=== PATIENT | male | born 1940 | race Caucasian/White ===

== ENCOUNTER 2018-12-07 15:37 | Emergency (ER) | payer MEDICARE, SELFPAY ==
[2018-12-07] VITALS (22 sets, daily range): BP systolic 103–148; BP diastolic 58–75; PULSE 63–74; RESP 13–23; TEMP 36.8–39; O2SAT 91–96
--- NOTE | 2018-12-07 15:53 | DI.RAD_ITS ---
SYMPTOM/DIAGNOSIS: FEVER, CHEST PAIN, R/O PNEUMONIA CHEST X-RAY: Frontal and lateral views. Heart size and pulmonary vasculature are within normal limits. There are post surgical changes of an aortic valve replacement. The lungs are clear. No effusions or pneumothoraces are identified. No acute osseous abnormalities are identified. IMPRESSION: No acute pulmonary process.
[2018-12-07] MEDS: Normal Saline Flush 10 ML SYR IVP (15:55)
[2018-12-07 16:04] LABS: Abs Immature Grans 0.02 k/cumm (0.0-0.09); Absolute Basophil Count 0.01 k/cumm (0.0-0.2); Absolute Lymphocyte Count 0.45 k/cumm (1.2-3.4); Absolute Monocyte Count 0.28 k/cumm (0.11-0.7); Absolute Neutrophil Count 3.36 k/cumm (1.2-6.7); Basophils % 0.2; HGB 13.9 g/dL (13.5-17.5); Immature Grans % 0.5; Lymphocytes % 10.9; Mean Corp. HGB Concentration 33.1 g/dL (32.0-36.0); Mean Corpuscular Hemoglobin 27.9 pg (27.0-33.0); Mean Corpuscular Volume 84.2 fL (80-95); Mean Platelet Volume 9.9 fL (8.0-11.0); Monocytes % 6.8; Neutrophils % 81.6; Platelet Count 145 x1000/uL (130-400); RBC 4.99 m/cumm (4.50-6.00); RBC Distribution Width 15.2 % (11.8-14.1); White Blood Cell Count 4.12 k/cumm (4.4-10.8)
[2018-12-07] MEDS: Acetaminophen 500 MG TAB 1000 MG PO (16:08)
[2018-12-07 16:11] LABS: Lactate-non-spesis 1.2 mmol/l (0.6-1.4)
--- NOTE | 2018-12-07 16:20 | ED.GENADUL_ITS ---
Discharge Plan Disposition Patient Disposition: AGAINST MEDICAL ADVICE Condition: Stable Discharge Details Chief Complaint: Chest Pain Clinical Impression: Chest pain, Fever, History of aortic valve replacement Primary Care Provider: Bernice,Local ED Provider: Alejandra Topete Home Meds and New Rx's Prescriptions: Continued metoprolol succinate 50 mg Tablet Extended Release 24 Hr 50 mg PO BID RF: 0 aspirin [Aspirin Low Dose] 81 mg Tablet,Delayed Release (Dr/Ec) 81 mg PO DAILY RF: 0 levothyroxine 88 mcg Tablet 88 mcg PO DAILY RF: 0 atorvastatin 10 mg Tablet 10 mg PO DAILY RF: 0 No Action acetaminophen 500 mg Tablet 1,000 mg PO PRN PRNRF: 0 Discharge Instructions Instructions: Chest Pain (ED), Fever in Adults (ED) Additional Instructions: Call your primary care doctor on Monday to schedule follow-up appointment for reevaluation. Take Tylenol as needed and directed for fever. Return immediately to the emergency department if you develop any worsening or new concerning symptoms. Discharge Data Discharge Date/Time-TO BE ENTERED AT DEPARTURE: 12/07/18 18:16 Discharge Physician: Alejandra Topete Medical Decision Making 78-year-old male with history of aortic stenosis and porcine aortic valve replacement and hypothyroidism who presents with weakness and fatigue since last night and chest pain/shortness of breath since this morning. EKG noted a rate of 69, T wave inversion in aVL, no acute ST elevation or depression. Temp 102.2 on arrival. Oxygen saturation 92% on room air. Patient appears comfortable. Lungs clear. Normal ENT exam. No meningeal signs. No murmurs. Differential diagnosis includes pneumonia, bronchitis, viral syndrome, pericarditis, myocarditis, endocarditis, acs, PE, UTI. Will place an IV, bolus IV fluids, labs, lactate, blood cultures, urinalysis and chest x-ray. Labs and imaging reviewed and essentially unremarkable at this time. WBC minimally decreased at 4.19. Lactate normal at 1.2. Trop negative. BNP 536. CXR negative. UA negative. Pt requesting to leave. He is getting dressed and requesting his IV be taken out. Discussed with pt that I would recommend admission for chest pain and fever w/ h/o aortic valve replacement for observation and likely additional imaging including CT chest and echo or for at least a second troponin but he is declining this at this time. Pt also offered antibiotics upon discharge but is refusing. The risks of and disability due to a serious pathology explained and pt understands and would still like to leave. Pt demonstrates capacity to make decisions. AMA form signed. Pt advised to f/u with his pcp for re-evaluation next week and encouraged to return here at any time. Medical Records Medical records reviewed: Yes I reviewed the patient's medical records. Imaging Data Radiologic Study: Radiologist's impression: XR Chest, 2 Views EXAM DATE/TIME: 12/07/2018 3:55 PM CLINICAL HISTORY: 78 years old, male; Type not specified; Prior surgery; Patient HX: Fever, chest pain; Additional info: R/O pneumonia TECHNIQUE: Imaging protocol: XR of the chest, 2 views. COMPARISON: No relevant prior studies available. FINDINGS: Lungs: No consolidation. Pleural space: Unremarkable. No pleural effusion. No pneumothorax. Heart/Mediastinum: An aortic valve device is present. No cardiomegaly. Vasculature: Aortic atherosclerosis. Bones/joints: Status post median sternotomy. Chronic osseous changes. IMPRESSION: No acute cardiopulmonary findings. Lab Data Lab results reviewed: Yes I reviewed the patient's lab results. Laboratory Tests Range/Units 12/07/18 12/07/18 12/07/18 15:55 15:55 15:55 WBC (4.4-10.8) k/cumm 4.12 L RBC (4.50-6.00) m/cumm 4.99 Hgb (13.5-17.5) g/dL 13.9 Hct (40.0-50.0) % 42.0 MCV (80-95) fL 84.2 MCH (27.0-33.0) pg 27.9 MCHC (32.0-36.0) g/dL 33.1 RDW (11.8-14.1) % 15.2 H Plt Count (130-400) x1000/uL 145 MPV (8.0-11.0) fL 9.9 Immature Gran % 0.5 Neutrophils % 81.6 Lymphocytes % 10.9 Monocytes % 6.8 Eosinophils % 0.0 Basophils % 0.2 Absolute Neutrophils (1.2-6.7) k/cumm 3.36 Absolute Lymphocytes (1.2-3.4) k/cumm 0.45 L Absolute Monocytes (0.11-0.7) k/cumm 0.28 Absolute Eosinophils (0.0-0.7) k/cumm 0.00 Absolute Basophils (0.0-0.2) k/cumm 0.01 Sodium (136-145) mmol/L 137 Potassium (3.5-5.1) mmol/L 4.2 Chloride (98-107) mmol/L 102 Carbon Dioxide (21.0-32.0) mmol/L 26.1 Anion Gap (3-11) mmol/L 8.9 BUN (7-18) mg/dL 19 H Creatinine (0.70-1.30) mg/dL 1.33 H Estimated GFR/1.73 m2 (mL/min/1.73m2) 52.28 Glucose (70-100) mg/dL 101 H Lactate (0.6-1.4) mmol/l 1.2 Calcium (8.5-10.1) mg/dL 8.4 L Magnesium (1.8-2.4) mg/dL 1.6 L Total Bilirubin (0.2-1.0) mg/dL 0.5 AST (15-37) U/L 17 ALT (12-78) U/L 22 Alkaline Phosphatase (46-116) U/L 102 Troponin I (0.00-0.06) ng/mL < 0.05 NT-Pro-B Natriuret Pep ( - 299) pg/mL Total Protein (6.4-8.2) g/dL 7.0 Albumin (3.4-5.0) g/dL 3.5 Urine Color (Yellow) Urine Clarity (Clear) Urine pH (5-8) Ur Specific [place] (1.005-1.025) Urine Protein (Negative) mg/dL Urine Ketones (Negative) mg/dL Urine Blood (Negative) Urine Nitrite (Negative) Urine Bilirubin (Negative) Urine Urobilinogen (Up TO 0.2) EU/dL Ur Leukocyte Esterase (Negative) Urine RBC (0-2) Urine WBC (0-5) HPF Ur Epithelial Cells (Negative) HPF Urine Crystals (Negative) HPF Urine Bacteria (Negative) HPF Urine Casts (Negative) LPF Urine Mucus (Negative) Ur Culture Indicated? Urine Glucose (Negative) mg/dL Range/Units 12/07/18 12/07/18 15:55 16:35 WBC (4.4-10.8) k/cumm RBC (4.50-6.00) m/cumm Hgb (13.5-17.5) g/dL Hct (40.0-50.0) % MCV (80-95) fL MCH (27.0-33.0) pg MCHC (32.0-36.0) g/dL RDW (11.8-14.1) % Plt Count (130-400) x1000/uL MPV (8.0-11.0) fL Immature Gran % Neutrophils % Lymphocytes % Monocytes % Eosinophils % Basophils % Absolute Neutrophils (1.2-6.7) k/cumm Absolute Lymphocytes (1.2-3.4) k/cumm Absolute Monocytes (0.11-0.7) k/cumm Absolute Eosinophils (0.0-0.7) k/cumm Absolute Basophils (0.0-0.2) k/cumm Sodium (136-145) mmol/L Potassium (3.5-5.1) mmol/L Chloride (98-107) mmol/L Carbon Dioxide (21.0-32.0) mmol/L Anion Gap (3-11) mmol/L BUN (7-18) mg/dL Creatinine (0.70-1.30) mg/dL Estimated GFR/1.73 m2 (mL/min/1.73m2) Glucose (70-100) mg/dL Lactate (0.6-1.4) mmol/l Calcium (8.5-10.1) mg/dL Magnesium (1.8-2.4) mg/dL Total Bilirubin (0.2-1.0) mg/dL AST (15-37) U/L ALT (12-78) U/L Alkaline Phosphatase (46-116) U/L Troponin I (0.00-0.06) ng/mL NT-Pro-B Natriuret Pep ( - 299) pg/mL 536 H Total Protein (6.4-8.2) g/dL Albumin (3.4-5.0) g/dL Urine Color (Yellow) Yellow Urine Clarity (Clear) Clear Urine pH (5-8) 6.0 Ur Specific [place] (1.005-1.025) 1.020 Urine Protein (Negative) mg/dL Trace H Urine Ketones (Negative) mg/dL Trace H Urine Blood (Negative) Negative Urine Nitrite (Negative) Negative Urine Bilirubin (Negative) Negative Urine Urobilinogen (Up TO 0.2) EU/dL 0.2 Ur Leukocyte Esterase (Negative) Negative Urine RBC (0-2) 0-2 Urine WBC (0-5) HPF 0-2 Ur Epithelial Cells (Negative) HPF Negative Urine Crystals (Negative) HPF Negative Urine Bacteria (Negative) HPF Negative Urine Casts (Negative) LPF Negative Urine Mucus (Negative) Trace Ur Culture Indicated? No Urine Glucose (Negative) mg/dL Negative ECG Data Attestation: I personally reviewed and interpreted this ECG (s) as follows: Interpretation: Rate of 69, atrial rhythm. T wave inversion in aVL. No acute ST elevation or depression. QTc 401. QRS 98 HPI General Mode of arrival: ambulatory . Date/Time Provider Initiated Documentation: 12/07/18 15:45 . Limitations to Documentation: no limitations . Information obtained by: patient . HPI Narrative: Patient is a 78-year-old male with a history of aortic stenosis /porcine aortic valve replacement who presents with fatigue and weakness with decreased appetite since last night, and shortness of breath and chest pain with dizziness today. Patient states the chest pain is intermittent, stabbing and lasts for 1 to 2 seconds and then resolves. Denies any aggravating or alleviating factors. He mainly admits to fatigue at this time. He states he drove from [place] yesterday which was approximately [address] He denies any pain at present. He denies any fever, cough, sore throat, vomiting, diarrhea, leg pain or swelling or recent surgery. He denies any radiation of pain. Related Data Home Medications Medication Instructions Recorded Confirmed aspirin [Aspirin Low Dose] 81 mg PO DAILY 12/07/18 12/08/18 atorvastatin 10 mg PO DAILY 12/07/18 12/08/18 levothyroxine 88 mcg PO DAILY 12/07/18 12/08/18 metoprolol succinate 50 mg PO BID 12/07/18 12/08/18 acetaminophen 1,000 mg PO PRN PRN 12/08/18 12/08/18 Allergies Allergy/AdvReac Type Severity Reaction Status Date / Time Penicillins AdvReac Mild Unverified 12/08/18 01:58 General Stated Complaint: Chest Pain GILBERTO: 2 Review of Systems Review of Systems All systems reviewed & are unremarkable except as noted in HPI and below Constitutional Reports as per HPI, Denies chills and Denies fever(s) Eyes Denies blurry vision ENT Denies dizziness, Denies sore throat and Denies throat swelling Cardiovascular Denies chest pain and Denies dyspnea Respiratory Denies cough and Denies dyspnea Gastrointestinal Denies abdominal pain, Denies diarrhea and Denies vomiting Genitourinary Denies hematuria and Denies dysuria Musculoskeletal Denies back pain and Denies numbness Integumentary/Breasts Denies lesions and Denies rash Neurologic Denies dizziness, Denies focal weakness and Denies numbness Allergic/Immunologic Denies throat swelling PFSH Medical History Aortic stenosis (Chronic) Hypothyroidism (Chronic) Surgical History H/O aortic valve replacement (Acute) History of bilateral carotid endarterectomy (Acute) Social History Smoking/Tobacco Use Status: Never Alcohol Intake: never Drug use: Never Do you feel safe at home: Yes Do you feel safe in your relationship?: Yes Exam Const General: cooperative, healthy appearing and no acute distress HENMT Head: normal to inspection Ears: hearing grossly normal bilaterally, external ears normal and TM's normal bilaterally General nose exam: external nose normal Face and sinus: normal facial exam Mouth: oral mucosae normal Teeth and gingiva: dentition normal Throat: posterior oropharynx normal Eyes General: appearance normal, both eyes and all related structures Pupils: PERRL EOM: EOM intact bilaterally Neck Neck: normal visual inspection and No submandibular swelling Lymphatic: no lymphadenopathy noted Chest Chest: normal inspection of the chest and no tenderness Resp Effort & Inspection: normal respiratory effort and able to speak in complete sentences Auscultation: clear to auscultation bilaterally Cardio Rate: regular rate Rhythm: regular rhythm GI Inspection: normal to inspection Palpation: soft, not firm, not rigid and nontender Auscultation: normal bowel sounds Male General Exam: Yes normal external exam Skin General skin exam: no rashes or lesions noted Neuro General: alert, awake and oriented x3 Cognition: normal cognition Speech: speech normal Motor: muscle tone normal throughout Sensory Exam: no sensory deficits noted Extrem General: normal to inspection, full ROM, normal capillary refill, no calf tenderness bilaterally and no edema Psych Appearance: grossly normal Mental Status: mental status grossly normal Speech and Movement: speech and movement normal Affect: normal affect Course Vital Signs Temperature 102.2 F H 12/07/18 15:46 Pulse 71 12/07/18 15:46 Respiratory Rate 18 12/07/18 15:46 Blood Pressure 144/67 H 12/07/18 15:46 Pulse Oximetry 95 12/07/18 15:46 Temperature 102.2 F H 12/07/18 16:08 Temperature Source Skin 12/07/18 15:46 Pulse 71 12/07/18 15:46 Respiratory Rate 14 12/07/18 16:02 Respiratory Effort 12/07/18 16:02 Respiratory Depth Normal 12/07/18 16:02 Respiratory Pattern Normal 12/07/18 16:02 Blood Pressure 144/67 H 12/07/18 15:46 Pulse Oximetry 95 12/07/18 15:46 Oxygen Delivery Method Room Air 12/07/18 15:46 Oxygen Flow Rate 0 12/07/18 15:46 Pain Level 1 12/07/18 16:08 Comment 102.4 tympanic 12/07/18 15:46 Lab/Test Results Lab/Test Results: 12/07/18 15:53 Blood Blood Culture - Pending 12/07/18 15:53 Blood Blood Culture - Pending Laboratory Tests Range/Units 12/07/18 12/07/18 15:55 15:55 WBC (4.4-10.8) k/cumm 4.12 L RBC (4.50-6.00) m/cumm 4.99 Hgb (13.5-17.5) g/dL 13.9 Hct (40.0-50.0) % 42.0 MCV (80-95) fL 84.2 MCH (27.0-33.0) pg 27.9 MCHC (32.0-36.0) g/dL 33.1 RDW (11.8-14.1) % 15.2 H Plt Count (130-400) x1000/uL 145 MPV (8.0-11.0) fL 9.9 Immature Gran % 0.5 Neutrophils % 81.6 Lymphocytes % 10.9 Monocytes % 6.8 Eosinophils % 0.0 Basophils % 0.2 Absolute Neutrophils (1.2-6.7) k/cumm 3.36 Absolute Lymphocytes (1.2-3.4) k/cumm 0.45 L Absolute Monocytes (0.11-0.7) k/cumm 0.28 Absolute Eosinophils (0.0-0.7) k/cumm 0.00 Absolute Basophils (0.0-0.2) k/cumm 0.01 Lactate (0.6-1.4) mmol/l 1.2
[2018-12-07 16:40] LABS: ALT 22 U/L (12-78); AST 17 U/L (15-37); Albumin 3.5 g/dL (3.4-5.0); Alkaline Phosphatase 102 U/L (46-116); Anion Gap 8.9 mmol/L (3-11); BUN 19 mg/dL (7-18); Bilirubin, Total 0.5 mg/dL (0.2-1.0); CO2 26.1 mmol/L (21.0-32.0); CREATININE 1.33 mg/dL (0.70-1.30); Calcium 8.4 mg/dL (8.5-10.1); Chloride 102 mmol/L (98-107); Estimated GFR 52.28 (mL/min/1.73m2); Glucose 101 mg/dL (70-100); Magnesium 1.6 mg/dL (1.8-2.4); Potassium 4.2 mmol/L (3.5-5.1); Sodium 137 mmol/L (136-145)
[2018-12-07 16:44] LABS: Troponin I < 0.05 ng/mL (0.00-0.06)
[2018-12-07 16:45] LABS: Bilirubin Negative (Negative); Blood Negative (Negative); Clarity Clear (Clear); Glucose Negative (Negative); Ketones Trace mg/dL (Negative); Leukocyte Esterase Negative (Negative); Nitrite Negative (Negative); Urobilinogen 0.2 EU/dL (Up TO 0.2)
[2018-12-07] MEDS: Normal Saline 500 ML IV (16:50)
[2018-12-07 16:57] LABS: WBC 0-2 HPF (0-5)
[2018-12-07 16:58] LABS: Bacteria Negative HPF (Negative); C & S Indicated? No; Casts Negative LPF (Negative); Crystals Negative HPF (Negative); Epithelial Cells Negative HPF (Negative); Mucus Trace (Negative); RBC 0-2 (0-2)
--- NOTE | 2018-12-07 17:09 | DI.VRAD_ITS ---
EXAM: XR Chest, 2 Views EXAM DATE/TIME: 12/07/2018 3:55 PM CLINICAL HISTORY: 78 years old, male; Type not specified; Prior surgery; Patient HX: Fever, chest pain; Additional info: R/O pneumonia TECHNIQUE: Imaging protocol: XR of the chest, 2 views. COMPARISON: No relevant prior studies available. FINDINGS: Lungs: No consolidation. Pleural space: Unremarkable. No pleural effusion. No pneumothorax. Heart/Mediastinum: An aortic valve device is present. No cardiomegaly. Vasculature: Aortic atherosclerosis. Bones/joints: Status post median sternotomy. Chronic osseous changes. IMPRESSION: No acute cardiopulmonary findings. Dictated and Authenticated by: Donnie Guzman MD. Ordering:CARMITA Roberts MD
[2018-12-07 17:17] LABS: NT-proBNP 536 pg/mL
== END 2018-12-07 18:16 | disposition left against medical advice (07) ==
PROVIDERS: Emergency Provider Physician Assistant
DX: R07.9 Chest pain, unspecified (principal); R50.9 Fever, unspecified; I35.0 Nonrheumatic aortic (valve) stenosis; Z95.2 Presence of prosthetic heart valve
CPT/HCPCS: 36415; 80053; 87040; 93005; 96360; 99285; 71046; 81003; 81015; 83605; 83735; 83880; 84484; 85025; 93010

== ENCOUNTER 2018-12-08 01:43 | Emergency (ER) | payer MEDICARE, SELFPAY ==
[2018-12-08 01:53] VITALS: BP 131/58; PULSE 72; RESP 20; TEMP 37.6; O2SAT 92
[2018-12-08 01:59] VITALS: RESP 20
[2018-12-08 02:00] VITALS: BP 103/54; PULSE 72; RESP 20; O2SAT 93
[2018-12-08 02:30] VITALS: BP 121/61; PULSE 70; RESP 18; O2SAT 92
--- NOTE | 2018-12-08 02:31 | W.ED.GENAD ---
Discharge Plan Disposition Patient Disposition: HOME Condition: Good Discharge Details Chief Complaint: SOB Clinical Impression: SOB (shortness of breath) Primary Care Provider: BerniceLocal ED Provider: Davidson Veloz Home Meds and New Rx's Prescriptions: No Action metoprolol succinate 50 mg Tablet Extended Release 24 Hr 50 mg PO BID RF: 0 aspirin [Aspirin Low Dose] 81 mg Tablet,Delayed Release (Dr/Ec) 81 mg PO DAILY RF: 0 levothyroxine 88 mcg Tablet 88 mcg PO DAILY RF: 0 atorvastatin 10 mg Tablet 10 mg PO DAILY RF: 0 acetaminophen 500 mg Tablet 1,000 mg PO PRN PRNRF: 0 Discharge Instructions Instructions: Dyspnea (ED) Additional Instructions: Please continue to drink plenty of water throughout the day. Take Tylenol or Motrin as needed if you do have a fever. If you notice any worsening of your symptoms, or any new symptoms such as vomiting, diarrhea, fever, chills, shortness of breath, chest pain, numbness, weakness, or fainting , please return immediately to the emergency department for reevaluation. Please follow up with your primary care provider as soon as possible for reassessment and reevaluation. As always, it was a pleasure participating in your medical care today. Medical Decision Making This is a pleasant 78-year-old male with a past medical history of hypothyroidism, high cholesterol, aortic valve that was replaced in April with a pig valve. He presents today for evaluation of mild acute shortness of breath, fever and chills at home. He was seen earlier today and had a notably benign work-up. No significant white count, chest x-ray was negative, urinalysis negative for any evidence of significant infection. He did go home against the recommendations of the physician Dr. Topete. Unfortunately his symptoms returned at home. At this time differential still includes cardiac etiology, however he is at risk for endocarditis with his heart valve those replaced. With a negative urinalysis benign work-up initially we will get repeat labs to notice any acute change. We will get a CT scan of the chest to evaluate for potential pulmonary embolism, pulmonary infarct, or pneumonia. Currently the patient states that he feels great, and has no complaints whatsoever. His episode of shortness of breath was notably transient. 4:01 AM Patient's laboratory work-up/repeat work-up has returned benign, no elevation in his white count, no elevation of lactate, renal function stable. CT scan/angios the chest demonstrates no evidence of acute finding, including no evidence of PE or other abnormality. The patient continues to feel well, and denies any current chest pain, chills, or shortness of breath. Repeat troponin and EKG are normal and unchanged. Vital signs are notably stable. No evidence of hypoxemia or respiratory distress. This time we had a long discussion with the patient and family regarding observation versus discharge and close follow-up. Currently the patient would like to go home. We discussed this with the family at bedside as well, they are in agreement. Patient will be discharged home with recommendations for close follow-up with his PCP. Patient's symptoms at this time after work-up showed no evidence of acute life-threatening process. Suspect that perhaps this may be a mild virus. We discussed red flags for which to return. I have extensively reviewed the treatment plan and discharge instructions with the patient and their family. I have addressed all patient concerns at this time. The patient and family was made aware of what symptoms to monitor for that would warrant a return to the emergency department. Discussed the plan with the patient and family, they demonstrate verbal understanding and agreement with our assessment and plan at this time. EKG 3: 58 Rate 66, IA 222, sinus rhythm with a first-degree AV block. No significant ST elevations or depressions, no T wave inversions. Q waves present in lead III, this is present on prior EKGs. No acute changes. FINDINGS: Pulmonary arteries: Normal. No pulmonary emboli. Aorta: Unremarkable. No aortic aneurysm. No aortic dissection. Lungs: Unremarkable. No consolidation. No masses. Pleural space: Unremarkable. No pneumothorax. No pleural effusion. Heart: Unremarkable. No cardiomegaly. No pericardial effusion. Mediastinum: Tiny hiatal hernia. Lymph nodes: Unremarkable. No enlarged lymph nodes. Bones/joints: Degenerative change of the spine. Median sternotomy wires noted. Soft tissues: Unremarkable. IMPRESSION: No acute finding. Thank you for allowing us to participate in the care of your patient. Dictated and Authenticated by: Bon Mims MD 12/08/2018 3:39 AM Eastern Time ([place] & [place]) HPI General Date/Time Provider Initiated Documentation: 12/08/18 01:55. HPI Narrative: This is a 78-year-old male with a past medical history of a pig aortic valve replacement this past April as well as hypothyroid, hypertension, and high cholesterol. He presented earlier today for evaluation of fatigue, chest pain and shortness of breath. At that time he had a relatively benign work-up with a negative urinalysis, negative chest x-ray, and normal labs. The patient went home against the recommendations of the physician, had been feeling better though at that time. When he got home the patient again became notably short of breath with fever, chills, and diaphoresis. The symptoms were notably concerning for family they brought him back in for further evaluation. He did take Tylenol before arrival, and now he states that he is feeling much better and has no complaints. Patient and family are visiting from [facility], or staying at their camp on the [place]. They deny any other complaints or modifying factors. He is not on any blood thinners or recent antibiotics. He denies any recent dental procedures. He denies IV or illicit drug use. He denies any history of PE. He has no other complaints at this time. Related Data Home Medications Medication Instructions Recorded Confirmed aspirin [Aspirin Low Dose] 81 mg PO DAILY 12/07/18 12/08/18 atorvastatin 10 mg PO DAILY 12/07/18 12/08/18 levothyroxine 88 mcg PO DAILY 12/07/18 12/08/18 metoprolol succinate 50 mg PO BID 12/07/18 12/08/18 acetaminophen 1,000 mg PO PRN PRN 12/08/18 12/08/18 Allergies Allergy/AdvReac Type Severity Reaction Status Date / Time Penicillins AdvReac Mild Unverified 12/08/18 01:58 General Stated Complaint: SOB GILBERTO: 3 Review of Systems Review of Systems All systems reviewed & are unremarkable except as noted in HPI and below PFSH Social History Smoking/Tobacco Use Status: Never Alcohol Intake: never Drug use: Never Do you feel safe at home: Yes Do you feel safe in your relationship?: Yes Exam Narrative Exam Narrative: 1.Const: Well-nourished, Well-developed, appearing stated age 2.Eyes: PERRL, no conjunctival injection, and symmetrical lids. 3.ENT: Atraumatic external nose and ears. Moist MM. Neck: Symmetric, trachea midline, No thyromegaly. 4.CVS: +S1/S2, mild systolic murmur auscultated loudest over the second and third left intercostal space. peripheral pulses 2+ and equal in all extremities. Brisk capillary refill in all extremities. 5.RESP: Unlabored respiratory effort. Clear to auscultation bilaterally. No wheezes rales or rhonchi 6.GI: Soft, Nontender/Nondistended, No hepatosplenomegaly. No guarding or rebound. 7.MSK: Normocephalic/Atraumatic, Extremities w/o deformity or ttp No cyanosis or clubbing, Normal movement of all extremities 8.Skin: Warm, Dry. No rashes or lesions. 9.Neuro: chief controller II-XII grossly intact. Sensation grossly intact, no focal neurologic deficits. 10.Psych: (AAO) x3. Appropriate mood and affect Course Vital Signs Temperature 37.6 C H 12/08/18 01:53 Pulse 72 12/08/18 01:53 Respiratory Rate 20 12/08/18 01:53 Blood Pressure 131/58 L 12/08/18 01:53 Pulse Oximetry 92 L 12/08/18 01:53 Temperature 37.6 C H 12/08/18 01:53 Temperature Source Temporal Artery Scan 12/08/18 01:53 Pulse 72 12/08/18 01:53 Respiratory Rate 20 12/08/18 01:59 Respiratory Effort Non-Labored 12/08/18 01:59 Respiratory Depth Normal 12/08/18 01:59 Respiratory Pattern Normal 12/08/18 01:59 Blood Pressure 131/58 L 12/08/18 01:53 Blood Pressure Position Supine 12/08/18 01:53 Pulse Oximetry 92 L 12/08/18 01:53 Oxygen Delivery Method Room Air 12/08/18 01:53 Oxygen Flow Rate 0 12/08/18 01:53
[2018-12-08] MEDS: Omnipaque 350 MG/ML 100 ML BTL IJ (02:56)
[2018-12-08 02:58] LABS: Abs Immature Grans 0.01 k/cumm (0.0-0.09); Absolute Basophil Count 0.01 k/cumm (0.0-0.2); Absolute Lymphocyte Count 0.34 k/cumm (1.2-3.4); Absolute Monocyte Count 0.22 k/cumm (0.11-0.7); Basophils % 0.3; HCT 38.2 % (40.0-50.0); HGB 12.9 g/dL (13.5-17.5); Immature Grans % 0.3; Lymphocytes % 11.4; Mean Corp. HGB Concentration 33.8 g/dL (32.0-36.0); Mean Corpuscular Hemoglobin 28.3 pg (27.0-33.0); Mean Corpuscular Volume 83.8 fL (80-95); Mean Platelet Volume 10.1 fL (8.0-11.0); Monocytes % 7.4; Neutrophils % 80.6; Platelet Count 125 x1000/uL (130-400); RBC 4.56 m/cumm (4.50-6.00); RBC Distribution Width 15.3 % (11.8-14.1); White Blood Cell Count 2.98 k/cumm (4.4-10.8)
--- NOTE | 2018-12-08 02:58 | DI.CT_ITS ---
SYMPTOM/DIAGNOSIS: COUGH, SOB, EVAL PE VS PNEUMONIA CTA CHEST: CT angiography was performed with multi slice acquisition and multi planar and 3D reconstruction. CT angiography of the chest was performed according to protocol. There are no priors for comparison. There is no evidence of a pulmonary embolus. The thoracic aorta is of normal caliber. No aneurysm or dissection is seen. Heart size is within normal limits. No significant pericardial effusion seen. Coronary artery calcifications are present. No significant thoracic adenopathy, pleural effusion, or pneumothorax is identified. Dependent atelectatic changes are seen in the lungs. No focal consolidating infiltrates are seen. The tracheobronchial tree is unremarkable. Degenerative changes are seen in the spine. No acute abnormality is seen in the upper abdominal images. IMPRESSION: No evidence of an acute pulmonary embolus, thoracic aortic dissection or aneurysm.
[2018-12-08 03:09] LABS: Lactate-non-spesis 1.3 mmol/l (0.6-1.4)
[2018-12-08 03:29] LABS: ALT 38 U/L (12-78); AST 50 U/L (15-37); Alkaline Phosphatase 108 U/L (46-116); Anion Gap 7.4 mmol/L (3-11); BUN 19 mg/dL (7-18); Bilirubin, Total 0.4 mg/dL (0.2-1.0); CO2 25.6 mmol/L (21.0-32.0); CREATININE 1.35 mg/dL (0.70-1.30); Calcium 8.2 mg/dL (8.5-10.1); Chloride 103 mmol/L (98-107); Estimated GFR 51.38 (mL/min/1.73m2); Glucose 125 mg/dL (70-100); Potassium 3.7 mmol/L (3.5-5.1); Sodium 136 mmol/L (136-145); Total Protein 6.2 g/dL (6.4-8.2)
[2018-12-08 03:35] LABS: Troponin I < 0.05 ng/mL (0.00-0.06)
--- NOTE | 2018-12-08 03:39 | DI.VRAD_ITS ---
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 Coronal and sagittal reformatted images were created and reviewed. 3D rendering: MIP reconstructed images were created and reviewed. Radiation optimization: All CT scans at this facility use at least one of these dose optimization techniques: automated exposure control; mA and/or kV adjustment per patient size (includes targeted exams where dose is matched to clinical indication); or iterative reconstruction. Contrast material: [id number]; Contrast volume: 85 ml; Contrast route: IB 18G RAC; COMPARISON: CR XR CHEST 2V PA LATERAL 12/07/2018 4:42 PM FINDINGS: Pulmonary arteries: Normal. No pulmonary emboli. Aorta: Unremarkable. No aortic aneurysm. No aortic dissection. Lungs: Unremarkable. No consolidation. No masses. Pleural space: Unremarkable. No pneumothorax. No pleural effusion. Heart: Unremarkable. No cardiomegaly. No pericardial effusion. Mediastinum: Tiny hiatal hernia. Lymph nodes: Unremarkable. No enlarged lymph nodes. Bones/joints: Degenerative change of the spine. Median sternotomy wires noted. Soft tissues: Unremarkable. IMPRESSION: No acute finding. Dictated and Authenticated by: Bon Mims MD. Ordering:DEBBI Cedeño MD
[2018-12-08 04:13] VITALS: BP 124/60; PULSE 70; RESP 18; TEMP 37; O2SAT 93
== END 2018-12-08 04:13 | disposition home or self-care (01) ==
PROVIDERS: Emergency Provider Student in an Organized Health Care Education/Training Program
DX: R06.02 Shortness of breath (principal); I10 Essential (primary) hypertension; Z95.3 Presence of xenogenic heart valve
CPT/HCPCS: 36415; 71275; 80053; 93005; 99285; 83605; 84484; 85025; 93010; J3490